=== PATIENT | female | born 2000 | race Caucasian/White ===

== ENCOUNTER 2020-10-04 16:17 | Emergency (ER) | payer SELFPAY ==
--- OUTSIDE RECORDS SUMMARY | 2020-10-04 16:20 | XMS REPORT | Continuity of Care Document ---
:2000 Author Organization [facility] t Address [address] [place] [address] Care Team Providers Name Role Phone NELIA NATH Primary Care Physician Mariajose JIMENEZ Attending Clinician Unavailable Payers Payer Name Policy Type Policy Number Effective Date Expiration Date Veronica Stantons [id number] 2018 NATHAN [facility] 00:00:00 - [facility] Problems This patient has no known problems. Allergies, Adverse Reactions, Alerts Allergy Allergy Status Severity Reaction(s) Onset Inactive Treating Comm ents Source Name Type Date Date Clinician No Known DA Active U 2019-0 [facility] [place] No Known DA Active U 2018-0 [facility] [place] No Known DA Active U 2018-0 [facility] [place] No Known DA Active U 2012-0 [facility] [address] [facility] Medications This patient has no known medications. Procedures Procedure Date / Time Performed Performing Clinician Sour e Limited ultrasound of 2018-05-17 00:00:[address] [facility] - one or more fetuses Patients [facility] Encounters Start End Encounter Admission Attending Care Care Encounter Source Date/Time Date/Time Type Type Clinicians Facility Department ID 2018-05-17 2018-05-17 Departed 1 TONY [facility] [id number] [facility] [address] 17:41:00 23:56:00 Emergency MORGAN 58 [facility] - Room Patient s [facility] 2018-03-23 2018-03-23 Departed [facility] [id number] [facility] [address] 11:03:00 11:36:00 Emergency 90 [facility] Room Patient s [facility] 2017-10-14 2017-10-14 Departed [facility] [id number] [facility] [address] 20:24:00 21:10:00 Emergency 79 [facility] Patient [facility] Results Test Description Test Time Test Comments Results Result Comments Source CBC W/AUTO DIFF 2018-10-29 08:12:00 Test Item Value Reference Range Interpretation Comme nts WHITE BLOOD CELL (test code = WBC) 14.3 K/mm3 6.6-12.1 H RED BLOOD CELL (test code = RBC) 3.98 M/mm3 3.45-5.01 N HEMOGLOBIN (test code = HGB) 10.1 g/dL 10.7-13.9 L HEMATOCRIT (test code = HCT) 31.9 % 32.1-42.1 L MEAN CELL VOLUME (test code = MCV) 80 fL 84.1-94.8 L MEAN CELL HGB (test code = MCH) 25.4 pg 27-35 L MEAN CELL HGB CONCETRATION (test code = MCHC) 31.7 gm/dL 32.2-34. 1 L RED CELL DISTRIBUTION WIDTH (test code = RDW) 14.5 % 12.4-16. 5 N PLATELET COUNT (test code = PLT) 214 K/mm3 133-385 N IMMATURE PLATELET FRACTION (test code = IPF) 0.0 % 0.0-10.8 N MEAN PLATELET VOLUME (test code = MPV) 9.6 fl 9.1-12.7 N NEUTROPHIL % (test code = NT%) 70.9 % 56.5-79.4 N LYMPHOCYTE % (test code = LY%) 17.9 % 14.3-34.3 N MONOCYTE % (test code = MO%) 9.5 % 5.1-10.4 N EOSINOPHIL % (test code = EO%) 0.8 % 0.1-3.0 N BASOPHIL % (test code = BA%) 0.3 % 0.1-1.0 N NEUTROPHIL # (test code = NT#) 10.1 K/mm3 LYMPHOCYTE # (test code = LY#) 2.6 K/mm3 MONOCYTE # (test code = MO#) 1.4 K/mm3 EOSINOPHIL # (test code = EO#) 0.12 K/mm3 BASOPHIL # (test code = BA#) 0.0 K/mm3 RBC MORPHOLOGY REQUIRED (test code = RBCM) NORMAL NORMAL PLATELET MORPHOLOGY REQUIRED (test code = PLTMR) NORMAL SELENA L AG HEPATITIS B [id number] 19:23:00 Test Item Value Reference Range Interpretation Comments AG HEPATITIS B SURFACE (test code NONREACTIVE NONREACTIVE = HBSAG) IS CONSENT FORM SIGNED FOR HIV TESTING? [facility] HEPATITIS C [id number] 19:23:00 Test Item Value Reference Range Interpretation Comments AB HEPATITIS C (test code = NONREACTIVE NONREACTIVE HCVAB) SIGNAL TO CUTOFF (test code = 0.10 <0.80 N CUTOFF) IS CONSENT FORM SIGNED FOR HIV TESTING? B [id number] 19:23:00 Test Item Value Reference Range Interpretation Comments AB TREPONEMA (test code = TREPAB) NONREACTIVE NONREACTIVE IS CONSENT FORM SIGNED FOR HIV TESTING? B HIV 1 19:23:00 Test Item Value Reference Range Interpretation Comments AB HIV 1 2 (test NONREACTIVE NONREACTIVE Done by [facility] code = [id number]) 4th Gen HIV Ag/Ab Combo Screen IS CONSENT FORM SIGNED FOR HIV TESTING? [facility] PROTEIN/CREATININE [id number] 18:33:00 Test Item Value Reference Range Interpretation Comments UR PROTEIN RANDOM (test code = 16.7 mg/dL PROTU) UR CREATININE RANDOM (test 121.7 mg/dL code = CREATU) PROTEIN/CREATININE RATIO (test 130.0 mg/gcrea <200 code = P/CRATIO) COMPREHENSIVE METABOLIC [id number] 18:33:00 Test Item Value Reference Range Interpretation Comments SODIUM (test code = NA) 138 mEq/L 135-145 N POTASSIUM (test code = K) 4.2 mEq/L 3.5-5.0 N CHLORIDE (test code = CL) 103 mEq/L 100-115 N CARBON DIOXIDE (test code = CO2) 24 mEq/L 22-31 N ANION GAP (test code = GAP) 15.60 10-20 N GLUCOSE (test code = GLU) 65 mg/dL 65-110 N BLOOD UREA NITROGEN (test code = 8 mg/dL 7-18 N BUN) GLOMERULAR FILTRATION RATE (test 127 ml/min >60 N code = GFR) CREATININE (test code = CREAT) 0.6 mg/dL 0.5-1.0 N TOTAL PROTEIN (test code = PROT) 6.9 gm/dL 6.3-8.2 N ALBUMIN (test code = ALB) 2.9 gm/dL 3.4-4.8 L CALCIUM (test code = CA) 8.8 mg/dL 8.4-10.2 N BILIRUBIN TOTAL (test code = 0.5 mg/dL 0.2-1.0 N BILT) SGOT/AST (test code = AST) 21 units/L 15-37 N SGPT/ALT (test code = ALT) 17 units/L 12-78 N ALKALINE PHOSPHATASE TOTAL (test 181 units/L 46-116 H code = ALKP) CBC W/AUTO [id number] 18:00:00 Test Item Value Reference Range Interpretation Comments WHITE BLOOD CELL (test code = WBC) 15.6 K/mm3 6.6-12.1 H RED BLOOD CELL (test code = RBC) 4.67 M/mm3 3.45-5.01 N HEMOGLOBIN (test code = HGB) 11.7 g/dL 10.7-13.9 N HEMATOCRIT (test code = HCT) 37.1 % 32.1-42.1 N MEAN CELL VOLUME (test code = MCV) 79 fL 84.1-94.8 L MEAN CELL HGB (test code = MCH) 25.1 pg 27-35 L MEAN CELL HGB CONCETRATION (test 31.5 gm/dL 32.2-34.1 L code = MCHC) RED CELL DISTRIBUTION WIDTH (test 14.3 % 12.4-16.5 N code = RDW) PLATELET COUNT (test code = PLT) 309 K/mm3 133-385 N IMMATURE PLATELET FRACTION (test 0.0 % 0.0-10.8 N code = IPF) MEAN PLATELET VOLUME (test code = 10.5 fl 9.1-12.7 N MPV) NEUTROPHIL % (test code = NT%) 73.6 % 56.5-79.4 N LYMPHOCYTE % (test code = LY%) 16.7 % 14.3-34.3 N MONOCYTE % (test code = MO%) 6.7 % 5.1-10.4 N EOSINOPHIL % (test code = EO%) 0.7 % 0.1-3.0 N BASOPHIL % (test code = BA%) 0.5 % 0.1-1.0 N NEUTROPHIL # (test code = NT#) 11.5 K/mm3 LYMPHOCYTE # (test code = LY#) 2.6 K/mm3 MONOCYTE # (test code = MO#) 1.0 K/mm3 EOSINOPHIL # (test code = EO#) 0.11 K/mm3 BASOPHIL # (test code = BA#) 0.1 K/mm3 RBC MORPHOLOGY REQUIRED (test code NORMAL NORMAL = RBCM) PLATELET MORPHOLOGY REQUIRED (test NORMAL NORMAL code = PLTMR) AG HEPATITIS B [id number] 04:05:00 Test Item Value Reference Range Interpretation Comments AG HEPATITIS B SURFACE (test code NONREACTIVE NONREACTIVE = HBSAG) AB HEPATITIS C [id number] 04:05:00 Test Item Value Reference Range Interpretation Comments AB HEPATITIS C (test code = NONREACTIVE NONREACTIVE HCVAB) SIGNAL TO CUTOFF (test code = 0.04 <0.80 N CUTOFF) AB [id number] 04:05:00 Test Item Value Reference Range Interpretation Comments AB TREPONEMA (test code = TREPAB) NONREACTIVE NONREACTIVE AG HEPATITIS B [id number] 03:30:00 Test Item Value Reference Range Interpretation Comments AG HEPATITIS B SURFACE (test code NONREACTIVE NONREACTIVE = HBSAG) AB HEPATITIS C [id number] 03:30:00 Test Item Value Reference Range Interpretation Comments AB HEPATITIS C (test code = HCVAB) NONREACTIVE SIGNAL TO CUTOFF (test code = CUTOFF) <0.80 AB [id number] 03:30:00 Test Item Value Reference Range Interpretation Comments AB TREPONEMA (test code = TREPAB) NONREACTIVE NONREACTIVE URINALYSIS [id number] 02:21:00 Test Item Value Reference Range Interpretation Comments UA COLOR (test code = YELLOW YELLOW COLU) UA APPEARANCE (test Slightly-Cloudy CLEAR code = APPU) UA GLUCOSE DIPSTICK NEGATIVE NEG (test code = DGLUU) UA BILIRUBIN DIPSTICK NEGATIVE NEG (test code = BILU) UA KETONE DIPSTICK NEGATIVE NEG (test code = KETU) UA SPECIFIC GRAVITY 1.023 1.001-1.035 N (test code = SGU) UA BLOOD DIPSTICK NEG NEG (test code = MILAGRO) UA PH DIPSTICK (test 5.0 5-9 code = ZAYRA) UA PROTEIN DIPSTICK NEGATIVE NEG (test code = PROU) UA UROBILINIOGEN 1.0 mg/dL NEG DIPSTICK (test code = URO) UA NITRITE DIPSTICK NEG NEG (test code = [place]) UA LEUKOCYTE ESTERASE 1+ NEG A DIPSTICK (test code = LEUU) UA WBC (test code = 11-15 #/hpf NONE SEEN A WBCU) UA RBC (test code = 0-2 #/hpf NONE SEEN RBCU) UA EPITHELIAL CELLS MANY #/HPF RARE-FEW A (test code = EPIU) UA MUCUS (test code = 1+ NONE SEEN MUCU) UA SPERM (test code = PRESENT /HPF A CONFI RMED BY SPERMU) MICROSCOPE URINE SAMPLE: CLEAN CATCHCBC W/AUTO [id number] 01:25:00 Test Item Value Reference Range Interpretation Comments WHITE BLOOD CELL (test code = WBC) 13.4 K/mm3 6.6-12.1 H RED BLOOD CELL (test code = RBC) 4.56 M/mm3 3.45-5.01 N HEMOGLOBIN (test code = HGB) 11.6 g/dL 10.7-13.9 N HEMATOCRIT (test code = HCT) 37.1 % 32.1-42.1 N MEAN CELL VOLUME (test code = MCV) 81 fL 84.1-94.8 L MEAN CELL HGB (test code = MCH) 25.4 pg 27-35 L MEAN CELL HGB CONCETRATION (test 31.3 gm/dL 32.2-34.1 L code = MCHC) RED CELL DISTRIBUTION WIDTH (test 14.1 % 12.4-16.5 N code = RDW) PLATELET COUNT (test code = PLT) 291 K/mm3 133-385 N IMMATURE PLATELET FRACTION (test 0.0 % 0.0-10.8 N code = IPF) MEAN PLATELET VOLUME (test code = 9.4 fl 9.1-12.7 N MPV) NEUTROPHIL % (test code = NT%) 71.2 % 56.5-79.4 N LYMPHOCYTE % (test code = LY%) 18.7 % 14.3-34.3 N MONOCYTE % (test code = MO%) 7.5 % 5.1-10.4 N EOSINOPHIL % (test code = EO%) 0.7 % 0.1-3.0 N BASOPHIL % (test code = BA%) 0.4 % 0.1-1.0 N NEUTROPHIL # (test code = NT#) 9.5 K/mm3 LYMPHOCYTE # (test code = LY#) 2.5 K/mm3 MONOCYTE # (test code = MO#) 1.0 K/mm3 EOSINOPHIL # (test code = EO#) 0.10 K/mm3 BASOPHIL # (test code = BA#) 0.1 K/mm3 RBC MORPHOLOGY REQUIRED (test code NORMAL NORMAL = RBCM) PLATELET MORPHOLOGY REQUIRED (test NORMAL NORMAL code = PLTMR) URINALYSIS [id number] 01:22:00 Test Item Value Reference Range Interpretation Comments UA COLOR (test code = YELLOW YELLOW COLU) UA APPEARANCE (test Slightly-Cloudy CLEAR code = APPU) UA GLUCOSE DIPSTICK NEGATIVE NEG (test code = DGLUU) UA BILIRUBIN DIPSTICK NEGATIVE NEG (test code = BILU) UA KETONE DIPSTICK NEGATIVE NEG (test code = KETU) UA SPECIFIC GRAVITY 1.023 1.001-1.035 N (test code = SGU) UA BLOOD DIPSTICK NEG NEG (test code = MILAGRO) UA PH DIPSTICK (test 5.0 5-9 code = ZAYRA) UA PROTEIN DIPSTICK NEGATIVE NEG (test code = PROU) UA UROBILINIOGEN mg/dL NEG DIPSTICK (test code = URO) UA NITRITE DIPSTICK NEG NEG (test code = [place]) UA LEUKOCYTE ESTERASE 1+ NEG A DIPSTICK (test code = LEUU) UA WBC (test code = 11-15 #/hpf NONE SEEN A WBCU) UA RBC (test code = 0-2 #/hpf NONE SEEN RBCU) UA EPITHELIAL CELLS MANY #/HPF RARE-FEW A (test code = EPIU) UA MUCUS (test code = 1+ NONE SEEN MUCU) UA SPERM (test code = PRESENT /HPF A CONFI RMED BY SPERMU) MICROSCOPE URINE SAMPLE: CLEAN CATCHCOMPREHENSIVE METABOLIC [id number] 01:02:00 Test Item Value Reference Range Interpretation Comments SODIUM (test code = NA) 138 mEq/L 135-145 N POTASSIUM (test code = K) 4.3 mEq/L 3.5-5.0 N CHLORIDE (test code = CL) 104 mEq/L 100-115 N CARBON DIOXIDE (test code = CO2) 25 mEq/L 22-31 N ANION GAP (test code = GAP) 13.40 10-20 N GLUCOSE (test code = GLU) 70 mg/dL 65-110 N BLOOD UREA NITROGEN (test code = 9 mg/dL 7-18 N BUN) GLOMERULAR FILTRATION RATE (test 129 ml/min >60 N code = GFR) CREATININE (test code = CREAT) 0.6 mg/dL 0.5-1.0 N TOTAL PROTEIN (test code = PROT) 6.7 gm/dL 6.3-8.2 N ALBUMIN (test code = ALB) 2.8 gm/dL 3.4-4.8 L CALCIUM (test code = CA) 8.8 mg/dL 8.4-10.2 N BILIRUBIN TOTAL (test code = 0.5 mg/dL 0.2-1.0 N BILT) SGOT/AST (test code = AST) 22 units/L 15-37 N SGPT/ALT (test code = ALT) 18 units/L 12-78 N ALKALINE PHOSPHATASE TOTAL (test 166 units/L 46-116 H code = ALKP) UR PROTEIN/CREATININE [id number] 00:57:00 Test Item Value Reference Range Interpretation Comments UR PROTEIN RANDOM (test code = 19.3 mg/dL PROTU) UR CREATININE RANDOM (test 138.7 mg/dL code = CREATU) PROTEIN/CREATININE RATIO (test 130.0 mg/gcrea <200 code = P/CRATIO) LACTIC ACID [id number] 00:47:00 Test Item Value Reference Range Interpretation Comments LACTIC ACID POC (test code = 0.65 MMOL/L 0.90-1.70 L LACTP) INFLUENZA A B [id number] 23:42:00 Test Item Value Reference Range Interpretation Comments INFLUENZA A PCR (test code = NEGATIVE NEGATIVE FLUAPCR) INFLUENZA B PCR (test code = NEGATIVE NEGATIVE FLUBPCR) COMPREHENSIVE METABOLIC [id number] 23:41:00 Test Item Value Reference Range Interpretation Comments SODIUM (test code = NA) 138 mEq/L 135-145 N POTASSIUM (test code = K) 3.7 mEq/L 3.5-5.0 N CHLORIDE (test code = CL) 103 mEq/L 100-115 N CARBON DIOXIDE (test code = CO2) 25 mEq/L 22-31 N ANION GAP (test code = GAP) 13.30 10-20 N GLUCOSE (test code = GLU) 98 mg/dL 65-110 N BLOOD UREA NITROGEN (test code = 8 mg/dL 7-18 N BUN) GLOMERULAR FILTRATION RATE (test 129 ml/min >60 N code = GFR) CREATININE (test code = CREAT) 0.6 mg/dL 0.5-1.0 N TOTAL PROTEIN (test code = PROT) 7.4 gm/dL 6.3-8.2 N ALBUMIN (test code = ALB) 3.0 gm/dL 3.4-4.8 L CALCIUM (test code = CA) 9.1 mg/dL 8.4-10.2 N BILIRUBIN TOTAL (test code = 0.4 mg/dL 0.2-1.0 N BILT) SGOT/AST (test code = AST) 21 units/L 15-37 N SGPT/ALT (test code = ALT) 48 units/L 12-78 N ALKALINE PHOSPHATASE TOTAL (test 129 units/L 46-116 H code = ALKP) CBC W/AUTO [id number] 23:25:00 Test Item Value Reference Range Interpretation Comments WHITE BLOOD CELL (test code = WBC) 17.1 K/mm3 6.6-12.1 H RED BLOOD CELL (test code = RBC) 4.61 M/mm3 3.45-5.01 N HEMOGLOBIN (test code = HGB) 11.9 g/dL 10.7-13.9 N HEMATOCRIT (test code = HCT) 37.7 % 32.1-42.1 N MEAN CELL VOLUME (test code = MCV) 82 fL 84.1-94.8 L MEAN CELL HGB (test code = MCH) 25.8 pg 27-35 L MEAN CELL HGB CONCETRATION (test 31.6 gm/dL 32.2-34.1 L code = MCHC) RED CELL DISTRIBUTION WIDTH (test 13.9 % 12.4-16.5 N code = RDW) PLATELET COUNT (test code = PLT) 317 K/mm3 133-385 N IMMATURE PLATELET FRACTION (test 0.0 % 0.0-10.8 N code = IPF) MEAN PLATELET VOLUME (test code = 9.8 fl 9.1-12.7 N MPV) NEUTROPHIL % (test code = NT%) 66.4 % 56.5-79.4 N LYMPHOCYTE % (test code = LY%) 19.1 % 14.3-34.3 N MONOCYTE % (test code = MO%) 8.5 % 5.1-10.4 N EOSINOPHIL % (test code = EO%) 0.7 % 0.1-3.0 N BASOPHIL % (test code = BA%) 0.9 % 0.1-1.0 N NEUTROPHIL # (test code = NT#) 11.4 K/mm3 LYMPHOCYTE # (test code = LY#) 3.3 K/mm3 MONOCYTE # (test code = MO#) 1.5 K/mm3 EOSINOPHIL # (test code = EO#) 0.12 K/mm3 BASOPHIL # (test code = BA#) 0.2 K/mm3 RBC MORPHOLOGY REQUIRED (test code NORMAL NORMAL = RBCM) PLATELET MORPHOLOGY REQUIRED (test NORMAL NORMAL code = PLTMR) UA RFLX MICR CULT IF [id number] 23:14:00 Test Item Value Reference Range Interpretation Comments UA COLOR (test code = COLU) YELLOW YELLOW UA APPEARANCE (test code = HAZY CLEAR APPU) UA GLUCOSE DIPSTICK (test code NEGATIVE NEGATIVE = DGLUU) UA BILIRUBIN DIPSTICK (test NEGATIVE NEGATIVE code = BILU) UA KETONE DIPSTICK (test code NEGATIVE NEGATIVE = KETU) UA SPECIFIC GRAVITY (test code 1.020 1.001-1.035 N = SGU) UA BLOOD DIPSTICK (test code = NEG NEGATIVE MILAGRO) UA PH DIPSTICK (test code = 6.0 5-9 ZAYRA) UA PROTEIN DIPSTICK (test code NEGATIVE NEGATIVE = PROU) UA UROBILINIOGEN DIPSTICK 1.0 EU/dL <=1.0 (test code = URO) UA NITRITE DIPSTICK (test code NEGATIVE NEGATIVE = [place]) UA LEUKOCYTE ESTERASE DIPSTICK 2+ NEGATIVE A (test code = LEUU) UA WBC (test code = WBCU) 20-30 #/hpf NONE SEEN A UA RBC (test code = RBCU) 0-2 #/hpf NONE SEEN UA EPITHELIAL CELLS (test code MANY #/hpf NONE SEEN A = EPIU) UA BACTERIA (test code = BACU) MODERATE #/hpf NONE SEEN A UA RFLX MICR CULT IF [id number] 23:01:00 Test Item Value Reference Range Interpretation Comments UA COLOR (test code = COLU) YELLOW YELLOW UA APPEARANCE (test code = APPU) HAZY CLEAR UA GLUCOSE DIPSTICK (test code = NEGATIVE NEGATIVE DGLUU) UA BILIRUBIN DIPSTICK (test code = NEGATIVE NEGATIVE BILU) UA KETONE DIPSTICK (test code = NEGATIVE NEGATIVE KETU) UA SPECIFIC GRAVITY (test code = 1.020 1.001-1.035 N SGU) UA BLOOD DIPSTICK (test code = MILAGRO) NEG NEGATIVE UA PH DIPSTICK (test code = ZAYRA) 6.0 5-9 UA PROTEIN DIPSTICK (test code = NEGATIVE NEGATIVE PROU) UA UROBILINIOGEN DIPSTICK (test 1.0 EU/dL <=1.0 code = URO) UA NITRITE DIPSTICK (test code = NEGATIVE NEGATIVE [place]) UA LEUKOCYTE ESTERASE DIPSTICK 2+ NEGATIVE A (test code = LEUU) UA WBC (test code = WBCU) #/hpf NONE SEEN UA EPITHELIAL CELLS (test code = #/HPF RARE-FEW EPIU) US OB MENDEZ 1 OR MORE [id number] 19:50:00 [place] [address] Patient Name: SHILA ROCKWELL MR #: [id number] : 2000 Age/Sex: 17/F Req #: [id number] Adm Physician: Ordered by: ABHISHEK SHAW NP Report #: [id number] Location:ER Room/Bed: Procedure: [id number] US/US OB MENDEZ 1 OR MORE FETUSES Exam Date: 05/17/18 Exam Time: 1916 REPORT STATUS: Signed Pelvic OB ultrasound CPT code: 34826 History: Lower abdominal pain Previous US: None Gestational age based on LMP of 02/01/2018: 15 weeks 0 days. Findings: There is a single intrauterine in variable position. The cardiac activity is normal and calculated to be 142 bpm. The placenta is located fundal and posterior. There is no evidence of placenta previa. There is normal amniotic fluid. The cervical length is 2.5 cm. The cervical os is closed. The measurements are as follows: BPD: 2.9 cm which equals 15 weeks 2 days HC: 10.7 cm which equals 15 weeks 1 days FL: 1.5 cm which equals 14 weeks 2 days AC: 9.5 cm which equals 15 weeks 5 days. Detailed anatomic survey was not performed. No pelvic fluid identified. No adnexal mass. IMPRESSION: 1. Single, live intrauterine with estimated gestational age by ultrasound of15 weeks 1 days. No discrepancy to patient's LMP. 2. Follow- up in 3-5 weeks for detailed anatomic survey. Thank you for your referral. Signed by: Dr. Jennifer Tolbert MD on 05/17/2018 7:53 PM Dictated By: JENNIFER TOLBERT MD 50 Transcribed By: LIUDMILA on 05/17/181952 COPY TO: ABHISHEK SHAW NPHuman Chorionic Gonadotropin, [id number] 19:13:00 Test Item Value Reference Range Interpretation Comments Human Chorionic Gonadotropin, Quant 70561.48 0-10 H (test code = 38296-5) [facility] [id number] 18:51:00 Test Item Value Reference Range Interpretation Comments Sodium Level (test code = 2951-2) 138 136-145 [facility] [id number] 18:51:00 Test Item Value Reference Range Interpretation Comments Potassium Level (test code = 2823-3) 3.5 3.5-5.1 [facility] [id number] 18:51:00 Test Item Value Reference Range Interpretation Comments Chloride Level (test code = 2075-0) 107 98-107 [facility]ide [id number] 18:51:00 Test Item Value Reference Range Interpretation Comments Carbon Dioxide Level (test code = 22 -29 2027-) [facility] [id number] 18:51:00 Test Item Value Reference Range Interpretation Comments Anion Gap (test code = 65631-5) 12.5 8-16 [facility] Urea [id number] 18:51:00 Test Item Value Reference Range Interpretation Comments Blood Urea Nitrogen (test code = < 5 7-26 L 3094-0) [facility]inine2018-12-17 18:51:00 Test Item Value Reference Range Interpretation Comments Creatinine (test code = 2160-0) 0.63 0.57-1.11 [facility]/Creatinine [id number] 18:51:00 Test Item Value Reference Range Interpretation Comments BUN/Creatinine Ratio (test code = 8 11-23 3097-3) [facility] Glomerular Filtration Rate 2018-05-17 18:51:00 Test Item Value Reference Range Interpretation Comments Estimat Glomerular Filtration Rate > 60 >60 (test code = 673927025) Ranges were taken from the National Kidney Disease Education Program and the National Kidney Foundation literature.Reference ranges:60 or greater: Kmharg45- 59 (for 3 consecutive months): Chronic kidneydisease 15 or less: Kidney failure [facility] Hospital[facility] [id number] 18:51:00 Test Item Value Reference Range Interpretation Comments Glucose Level (test code = JDV1932) 68 74-118 L [facility] [id number] 18:51:00 Test Item Value Reference Range Interpretation Comments Calcium Level (test code = 83277-4) 9.4 8.4-10.2 [facility] [id number] 18:51:00 Test Item Value Reference Range Interpretation Comments Total Bilirubin (test code = 1975-2) 0.6 0.2-1.2 [facility] Hospital[facility]artate Amino Transf (AST/SGOT) 2018-05-17 18:51:00 Test Item Value Reference Range Interpretation Comments Aspartate Amino Transf (AST/SGOT) (test 22 5-34 code = Aspartate Amino Transf (AST/SGOT)) [facility] HospitalAlanine Aminotransferase (ALT/SGPT) 2018-05-17 18:51:00 Test Item Value Reference Range Interpretation Comments Alanine Aminotransferase (ALT/SGPT) 44 0-55 (test code = 1742-6) [facility] [id number] 18:51:00 Test Item Value Reference Range Interpretation Comments Total Protein (test code = 2885-2) 7.6 6.5-8.1 [facility] Hospital[facility]in2018-12-17 18:51:00 Test Item Value Reference Range Interpretation Comments Albumin (test code = 1751-7) 3.8 3.5-5.0 [facility] 18:51:00 Test Item Value Reference Range Interpretation Comments Globulin (test code = 69167-7) 3.8 2.3-3.5 H [facility] [id number] 18:51:00 Test Item Value Reference Range Interpretation Comments Albumin/Globulin Ratio (test code = 1.0 0.8-2.0 1759-0) [facility] [id number] 18:51:00 Test Item Value Reference Range Interpretation Comments Alkaline Phosphatase (test code = 58 40-150 6768-6) [facility] [id number] 18:47:00 Test Item Value Reference Range Interpretation Comments Urine WBC (test code = 5821-4) 6-10 0-5 [facility] [id number] 18:47:00 Test Item Value Reference Range Interpretation Comments Urine RBC (test code = 47272-0) NONE 0-5 [facility] [id number] 18:47:00 Test Item Value Reference Range Interpretation Comments Urine Bacteria (test code = 32202-9) MODERATE NONE H [facility] Epithelial [id number] 18:47:00 Test Item Value Reference Range Interpretation Comments Urine Epithelial Cells (test code = MODERATE NONE 93413-9) [facility] Amorphous [id number] 18:47:00 Test Item Value Reference Range Interpretation Comments Urine Amorphous Sediment (test code MODERATE FEW H = 8246-1) [facility] [id number] 18:31:00 Test Item Value Reference Range Interpretation Comments Urine Color (test code = 5778-6) YELLOW YELLOW [facility] [id number] 18:31:00 Test Item Value Reference Range Interpretation Comments Urine Clarity (test code = 70641-0) SL CLOUDY CLEAR [facility] Specific [id number] 18:31:00 Test Item Value Reference Range Interpretation Comments Urine Specific Redig (test code = 1.025 1.010-1.025 5811-5) [facility] [id number] 18:31:00 Test Item Value Reference Range Interpretation Comments Urine pH (test code = 43938-2) 6 5-7 [facility] Leukocyte [id number] 18:31:00 Test Item Value Reference Range Interpretation Comments Urine Leukocyte Esterase (test code = 1+ NEGATIVE H 5799-2) [facility] [id number] 18:31:00 Test Item Value Reference Range Interpretation Comments Urine Nitrite (test code = 67323-2) NEGATIVE NEGATIVE [facility] Korhbyo6951-49-28 18:31:00 Test Item Value Reference Range Interpretation Comments Urine Protein (test code = 5804-0) NEGATIVE NEGATIVE [facility] Glucose (UA)2018-05-17 18:31:00 Test Item Value Reference Range Interpretation Comments Urine Glucose (UA) (test code = NEGATIVE NEGATIVE 2349-9) [facility] [id number] 18:31:00 Test Item Value Reference Range Interpretation Comments Urine Ketones (test code = 07254-5) NEGATIVE NEGATIVE [facility] [id number] 18:31:00 Test Item Value Reference Range Interpretation Comments Urine Urobilinogen (test code = 1 0.2-1 53259-6) [facility] [id number] 18:31:00 Test Item Value Reference Range Interpretation Comments Urine Bilirubin (test code = 1978-6) NEGATIVE NEGATIVE [facility] [id number] 18:31:00 Test Item Value Reference Range Interpretation Comments Urine Blood (test code = 85060-2) NEGATIVE NEGATIVE [facility]ematocrit2018-12-17 18:20:00 Test Item Value Reference Range Interpretation Comments Hematocrit (test code = 4544-3) 38.8 34.2-44.1 [facility] Corpuscular [id number] 18:20:00 Test Item Value Reference Range Interpretation Comments Mean Corpuscular Volume (test code = 77.9 81-99 L 787-2) [facility] [id number] 18:20:00 Test Item Value Reference Range Interpretation Comments Mean Corpuscular Hemoglobin (test code 25.7 28-32 L = 785-6) [facility] Hemoglobin Concent 2018-05-17 18:20:00 Test Item Value Reference Range Interpretation Comments Mean Corpuscular Hemoglobin Concent 33.0 31-35 (test code = 786-4) [facility] Distribution [id number] 18:20:00 Test Item Value Reference Range Interpretation Comments Red Cell Distribution Width (test code 14.7 11.7-14.4 H = 86954-0) [facility] HospitalPlatelet [id number] 18:20:00 Test Item Value Reference Range Interpretation Comments Platelet Count (test code = 777-3) 273 140-360 [facility]ils (%) (Auto)2018-05-17 18:20:00 Test Item Value Reference Range Interpretation Comments Neutrophils (%) (Auto) (test code = 77.0 38.7-80.0 05310-9) [facility]Lymphocytes (%) (Auto)2018-05-17 18:20:00 Test Item Value Reference Range Interpretation Comments Lymphocytes (%) (Auto) (test code = 16.0 18.0-39.1 L 736-9) [facility] (%) (Auto)2018-05-17 18:20:00 Test Item Value Reference Range Interpretation Comments Monocytes (%) (Auto) (test code = 5.2 4.4-11.3 5905-5) [facility]Eosinophils (%) (Auto)2018-05-17 18:20:00 Test Item Value Reference Range Interpretation Comments Eosinophils (%) (Auto) (test code = 1.0 0.0-6.0 713-8) [facility]ophils (%) (Auto)2018-05-17 18:20:00 Test Item Value Reference Range Interpretation Comments Basophils (%) (Auto) (test code = 0.2 0.0-1.0 706-2) [facility] HospitalIM [facility]ULOC[facility]TES %2018-05-17 18:20:00 Test Item Value Reference Range Interpretation Comments IM GRANULOCYTES % (test code = IM 0.6 0.0-1.0 GRANULOCYTES %) [facility]Neutrophils # (Auto)2018-05-17 18:20:00 Test Item Value Reference Range Interpretation Comments Neutrophils # (Auto) (test code = 9.9 2.1-6.9 H 751-8) [facility] HospitalLymphocytes # (Auto)2018-05-17 18:20:00 Test Item Value Reference Range Interpretation Comments Lymphocytes # (Auto) (test code = 2.1 1.0-3.2 34182-7) [facility] HospitalMonocytes # (Auto)2018-05-17 18:20:00 Test Item Value Reference Range Interpretation Comments Monocytes # (Auto) (test code = 742-7) 0.7 0.2-0.8 [facility]Eosinophils # (Auto)2018-05-17 18:20:00 Test Item Value Reference Range Interpretation Comments Eosinophils # (Auto) (test code = 0.1 0.0-0.4 711-2) [facility]ophils # (Auto)2018-05-17 18:20:00 Test Item Value Reference Range Interpretation Comments Basophils # (Auto) (test code = 704-7) 0.0 0.0-0.1 [facility] HospitalAbsolute Immature Granulocyte (auto 2018-05-17 18:20:00 Test Item Value Reference Range Interpretation Comments Absolute Immature Granulocyte (auto 0.08 0-0.1 (test code = Absolute Immature Granulocyte (auto) [facility] HospitalWhite Blood [id number] 18:20:00 Test Item Value Reference Range Interpretation Comments White Blood Count (test code = 6690-2) 12.79 4.8-10.8 H [facility] Blood [id number] 18:20:00 Test Item Value Reference Range Interpretation Comments Red Blood Count (test code = 789-8) 4.98 3.6-5.1 [facility] HospitalHemoglobin2018-12-17 18:20:00 Test Item Value Reference Range Interpretation Comments Hemoglobin (test code = 23936-1) 12.8 12.0-16.0 [facility]
[2020-10-04 19:17] LABS: Absolute Lymphocytes (CBC) 2.4 K/uL (0.7-4.9); Basophils % 0.6 % (0-1.3); Hematocrit 40.8 % (36.0-45.0); Lymphocytes % 24.9 % (15.3-44.8); RBC Red Blood Cell Count 5.22 M/uL (3.86-4.86)
[2020-10-04 19:20] LABS: ALT/SGPT 42 U/L (12-78); AST/SGOT 108 U/L (15-37); Albumin 4.2 g/dL (3.4-5.0); Alkaline Phosphatase 65 U/L (45-117); BUN Blood Urea Nitrogen 14 mg/dL (7-18); Bicarbonate 28 mmol/L (21-32); Bilirubin Direct 0.2 mg/dL (0-0.2); Bilirubin Total 1.1 mg/dL (0.2-1.0); Glucose Level 82 mg/dL (74-106); Magnesium 2.1 mg/dL (1.8-2.4); NT PRO-BNP 80 pg/mL (<125); Potassium 4.1 mmol/L (3.5-5.1); Sodium Level 141 mmol/L (136-145); Troponin (Emerg Dept Use Only) < 0.02 ng/mL (0.0-0.045)
--- NOTE | 2020-10-04 19:28 | RAD REPORT ---
EXAM DESCRIPTION: Devika Single View10/04/2020 6:47 pm CLINICAL HISTORY: Chest pain COMPARISON: none FINDINGS: The lungs appear clear of acute infiltrate. The heart is normal size IMPRESSION: No acute abnormalities displayed
[2020-10-04 19:30] LABS: Protime INR 1.13
--- NOTE | 2020-10-04 20:22 | ER ---
Nurse's Notes [facility] Name: Madison Villa Age: 19 yrs Sex: Female : 2000 Arrival Date: 10/04/2020 Time: 16:28 Bed 5 Private MD: Diagnosis: Dyspnea;Chest pain, unspecified Presentation: 10/04 16:36 Chief complaint: Patient states: Been having trouble catching my breathe for about a ca1 week and a half now. No cough. Had Covid in June 2020. Coronavirus screen: Client denies travel out of the [place] in the last 14 days. shortness of breath, Client presents with at least one sign or symptom that may indicate coronavirus-19. Standard/surgical mask placed on the client. Provider contacted for isolation considerations. Ebola Screen: Patient negative for fever greater than or equal to 101.5 degrees Fahrenheit, and additional compatible Ebola Virus Disease symptoms Patient denies exposure to infectious person. Patient denies travel to an Ebola-affected area in the 21 days before illness onset. No symptoms or risks identified at this time. Initial Sepsis Screen: Does the patient meet any 2 criteria? No. Patient's initial sepsis screen is negative. Does the patient have a suspected source of infection? No. Patient's initial sepsis screen is negative. Risk Assessment: Do you want to hurt yourself or someone else? Patient reports no desire to harm self or others. Onset of symptoms was October 04, 2020. 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 Flu vaccine is not up to date. - Social history:: Smoking status: Patient denies any tobacco usage or history of. Screenin:14 Abuse screen: Denies threats or abuse. Nutritional screening: No deficits noted. ll1 Tuberculosis screening: No symptoms or risk factors identified. 18:19 Fall Risk Total Cornejo Fall Scale indicates No Risk (0-24 pts). ll1 Assessment: 18:12 General: Appears in no apparent distress. Behavior is calm, cooperative, appropriate ll1 for age. Pain: Denies pain. Neuro: No deficits noted. Cardiovascular: No deficits noted. Cardiovascular: No deficits noted. Cardiovascular: Rhythm is n/a HR 73. Respiratory: Airway is patent Trachea midline Respiratory effort is even, unlabored, Respiratory pattern is regular, symmetrical, Breath sounds are clear bilaterally. Breath sounds are diminished bilaterally. Onset: The symptoms/episode began/occurred 10 days, the patient has mild shortness of breath. 19:00 Reassessment: Patient appears in no apparent distress at this time. Patient and/or jb4 family updated on plan of care and expected duration. Pain level reassessed. Patient is alert, oriented x 3, equal unlabored respirations, skin warm/dry/pink. 20:15 Reassessment: Patient appears in no apparent distress at this time. Patient and/or jb4 family updated on plan of care and expected duration. Pain level reassessed. Patient is alert, oriented x 3, equal unlabored respirations, skin warm/dry/pink. Vital Signs: 16:36 BP 120 / 67; Pulse 73; Resp 16 S; Temp 98.2(TE); Pulse Ox 99% on R/A; Weight 87.09 kg ca1 (R); Height 5 ft. 6 in. (167.64 cm) (R); 18:48 BP 115 / 70; Pulse 90; Resp 17; Pulse Ox 97% on R/A; ll1 20:00 BP 103 / 65; Pulse 65; Resp 18; Pulse Ox 100% on R/A; jb4 16:36 Body Mass Index 30.99 (87.09 kg, 167.64 cm) ca1 ED Course: 16:28 Patient arrived in ED. am2 16:38 Triage completed. ca1 16:39 Arm band placed on right wrist. ca1 18:12 Ayaan Benitez PA is PHCP. [facility] 18:12 Chinedu Simon MD is Attending Physician. m 18:12 Magdalena Cerna, ESTRELLA is Primary Nurse. ll1 18:12 Patient placed in an exam room, on a stretcher. ll1 18:14 Patient has correct armband on for positive identification. Bed in low position. Call ll1 light in reach. Side rails up X 1. Pulse ox on. 18:47 XRAY Chest (1 view) In Process Unspecified. EDMS 19:18 Primary Nurse role handed off by Magdalena Cerna RN jb4 19:18 Cachorro Khanna, RN is Primary Nurse. jb4 20:46 No provider procedures requiring assistance completed. IV discontinued, intact, jb4 bleeding controlled, No redness/swelling at site. Administered Medications: 20:34 Drug: Decadron - Dexamethasone 10 mg Route: IVP; Site: right antecubital; jb4 Outcome: 20:21 Discharge ordered by . digna 20:46 Discharged to home ambulatory. jb4 20:46 Condition: stable 20:46 Discharge instructions given to patient, Instructed on discharge instructions, follow up and referral plans. medication usage, Demonstrated understanding of instructions, follow-up care, medications, Prescriptions given X 2. 20:47 Patient left the ED. jb4 Signatures: Dispatcher [employer] EDMS Ayaan Benitez PA PA jmm Bryson, James, RN RN jb4 Kimberly Masterson am2 Cheryle Casas RN RN ca1 Magdalena Cerna RN RN ll1 Corrections: (The following items were deleted from the chart) 18:18 18:12 Respiratory: Airway is patent Trachea midline Respiratory effort is even, ll1 unlabored, Respiratory pattern is regular, symmetrical, Breath sounds are clear bilaterally. Onset: The symptoms/episode began/occurred 10 days, the patient has mild shortness of breath ll1
--- NOTE | 2020-10-04 20:22 | EDPHYS ---
Physician Documentation [facility] Name: Madison Villa Age: 19 yrs Sex: Female : 2000 Arrival Date: 10/04/2020 Time: 16:28 Bed 5 Private MD: ED Physician Chinedu Simon HPI: 10/04 18:16 This 19 yrs old Female presents to ER via Ambulatory with complaints of jmm Breathing Difficulty. 18:16 The patient has shortness of breath at rest. Onset: The symptoms/episode began/occurred jmm gradually, 1 month(s) ago. The patient's shortness of breath is aggravated by deep inspiration. Associated signs and symptoms: Pertinent negatives: fever. This is a 19 year old female with a history of asthma that presents to the ED with complaints chest pain. Patient denies fever, cough. Initially developed pain on deep inspiration with chest pain that radiated to the left arm. Patient states since had developed shortness of breath. . 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 Flu vaccine is not up to date. - Social history:: Smoking status: Patient denies any tobacco usage or history of. ROS: 18:16 Constitutional: Negative for fever, chills, and weight loss. jm 18:16 Cardiovascular: Positive for chest pain. 18:16 Respiratory: Positive for shortness of breath. 18:16 All other systems are negative. Exam: 18:16 Constitutional: This is a well developed, well nourished patient who is awake, alert, jmm and in no acute distress. Head/Face: atraumatic. Eyes: EOMI, no conjunctival erythema appreciated ENT: Moist Mucus Membranes Neck: Trachea midline, Supple Chest/axilla: Normal chest wall appearance and motion. Cardiovascular: Regular rate and rhythm. No edema appreciated Respiratory: Normal respirations, no respiratory distress appreciated Abdomen/GI: Non distended, soft Back: Normal ROM Skin: General appearance color normal MS/ Extremity: Moves all extremities, no obvious deformities appreciated, no edema noted to the lower extremities Neuro: Awake and alert, normal gait Psych: Behavior is normal, Mood is normal, Patient is cooperative and pleasant Vital Signs: 16:36 BP 120 / 67; Pulse 73; Resp 16 S; Temp 98.2(TE); Pulse Ox 99% on R/A; Weight 87.09 kg ca1 (R); Height 5 ft. 6 in. (167.64 cm) (R); 18:48 BP 115 / 70; Pulse 90; Resp 17; Pulse Ox 97% on R/A; ll1 20:00 BP 103 / 65; Pulse 65; Resp 18; Pulse Ox 100% on R/A; jb4 16:36 Body Mass Index 30.99 (87.09 kg, 167.64 cm) ca1 MDM: 18:16 Patient medically screened. mellisa 20:20 Data reviewed: vital signs, nurses notes. Counseling: I had a detailed discussion with digna the patient and/or guardian regarding: the historical points, exam findings, and any diagnostic results supporting the discharge/admit diagnosis, lab results, radiology results, the need for outpatient follow up, to return to the emergency department if symptoms worsen or persist or if there are any questions or concerns that arise at home. ED course: Patient is alert and non toxic in appearance in the ED. No signs of resp distess. Patient was given strict return precautions. patient understood and agrees with the plan of care. . 05 18:28 Order name: Basic Metabolic Panel [facility] 10/04 18:28 Order name: CBC with Diff [facility] 10/04 18:28 Order name: LFT's [facility] 10/04 18:28 Order name: Magnesium [facility] 10/04 18:28 Order name: NT PRO-BNP; Complete Time: 19:22 [facility] 10/04 18:28 Order name: PT-INR; Complete Time: 19:45 [facility] 10/04 18:28 Order name: Troponin (emerg Dept Use Only); Complete Time: 19:22 [facility] 10/04 18:28 Order name: XRAY Chest (1 view); Complete Time: 19:29 [facility] 10/04 18:28 Order name: D-Dimer; Complete Time: 19:45 [facility] 10/04 18:29 Order name: Basic Metabolic Panel; Complete Time: 19:22 [facility] 10/04 18:29 Order name: CBC with Automated Diff; Complete Time: 19:45 [facility] 10/04 18:29 Order name: Liver (Hepatic) Function; Complete Time: 19:22 [facility] 10/04 18:29 Order name: Magnesium; Complete Time: 19:22 [facility] 10/04 18:28 Order name: EKG; Complete Time: 18:29 [facility] 10/04 18:28 Order name: Cardiac monitoring; Complete Time: 18:47 [facility] 10/04 18:28 Order name: EKG - Nurse/Tech; Complete Time: 18:47 [facility] 10/04 18:28 Order name: IV Saline Lock; Complete Time: 18:29 [facility] 10/04 18:28 Order name: Labs collected and sent; Complete Time: 18:29 [facility] 10/04 18:28 Order name: O2 Per Protocol; Complete Time: 18:29 [facility] 10/04 18:28 Order name: O2 Sat Monitoring; Complete Time: 18:29 [facility] Administered Medications: 20:34 Drug: Decadron - Dexamethasone 10 mg Route: IVP; Site: right antecubital; jb4 Disposition: 10/05 07:24 Co-signature as Attending Physician, Chinedu Simon MD I agree with the assessment and mellisa plan of care. Disposition: 10/04/20 20:21 Discharged to Home. Impression: Dyspnea, Chest pain, unspecified. - Condition is Stable. - Discharge Instructions: Nonspecific Chest Pain. - Prescriptions for Prednisone 20 mg Oral Tablet - take 3 tablet by ORAL route once daily for 5 days; 15 tablet. Albuterol Sulfate 90 mcg/actuation - inhale 1-2 puff by INHALATION route every 4-6 hours; 1 Inhaler. - Medication Reconciliation Form, Thank You Letter, Antibiotic Education, Prescription Opioid Use form. - Follow up: Private Physician; When: 2 - 3 days; Reason: Recheck today's complaints, Continuance of care, Re-evaluation by your physician. Signatures: Dispatcher [employer] Chinedu Shaikh MD MD cha Mickail, Joel, PA PA jmm Bryson, James, RN RN jb4 Cheryle Casas RN RN ca1 Corrections: (The following items were deleted from the chart) 10/04 20:47 20:21 10/04/2020 20:21 Discharged to Home. Impression: Dyspnea; Chest pain, jb4 unspecified. Condition is Stable. Forms are Medication Reconciliation Form, Thank You Letter, Antibiotic Education, Prescription Opioid Use. Follow up: Private Physician; When: 2 - 3 days; Reason: Recheck today's complaints, Continuance of care, Re-evaluation by your physician. digna
[2020-10-04] MEDS ORDERED: dexAMETHasone 10 MG/ML VIAL ONE (20:48)
[2020-10-04 20:54] VITALS: TEMP 98.2
[2020-10-04 20:57] VITALS: BP 103/65; O2SAT 100
--- NOTE | 2020-10-05 07:49 | EKG ---
Test Date: 2020-10-04 Test Time: 18:44:22 Remarketing Rep: LML MEASUREMENT RESULTS: Intervals: Rate: 57 CT: 162 QRSD: 84 QT: 424 QTc: 412 [place]: P: 48 CT: 162 QRS: 68 T: 26 INTERPRETIVE STATEMENTS: Sinus bradycardia with sinus arrhythmia Otherwise normal ECG No previous ECG available for comparison Electronically Signed On 10-05-20 07:48:16 CDT by Rober Hewitt
== END 2020-10-04 20:47 | disposition home or self-care (01) ==
LOC: ER 16:17
DX: R07.9 Chest pain, unspecified (principal)
CPT/HCPCS: 36415; 71045; 80048; 80076; 83735; 83880; 84484; 85025; 85379; 85610; 93005; 96374; 99284; J1100